=== PATIENT | female | born 1995 | race Caucasian/White ===

== ENCOUNTER 2016-06-17 15:31 | Emergency (ER) | payer OTHER ==
[~2016-06-17] VITALS: Wt 73.5 kg
[~2016-06-17 15:31] MED LIST: AZIT250T94 PO; BEN25 PO; EXCED PO; IBUP400T22 PO; LOPE2CAP PO; MECL12.574 PO; NASO17 NASAL; NITR-58 PO; ONDA4TAB14 PO; PRED50TA PO; PSEU30TA38 PO
--- NOTE | 2016-06-17 17:41 | ERD ---
ER Documentation Chief Complaint Date/Time DATE: 06/17/16 TIME: 17:40 Chief Complaint COUGH, BODYACHES, FEVER AT HOME, ONSET 3 DAYS HPI 20-year-old female comes in with cough, body aches and fever for the past 3 days. Patient states she has a dry cough. Patient states that her fever is maximum of 100.2. She denies chest pain, shortness of breath or trouble. No history of asthma, she is a non-smoker. ROS All systems reviewed and are negative except as per history of present illness. Medications Home Meds Active Scripts Ondansetron (Ondansetron Odt) 4 Mg Tab.rapdis, 4 MG PO Q6H Y for NAUSEA AND/OR VOMITING, #10 TAB Prov:ADRI SNYDER PA-C 05/03/16 Acetaminophen/Aspirin/Caffeine* (Excedrin*) 1 Tab Tab, 1 TAB PO BID, #20 TAB Prov:ADRI SNYDER PA-C 05/03/16 Meclizine Hcl* (Antivert*) 12.5 Mg Tab, 12.5 MG PO Q6H Y for DIZZINESS, #20 TAB Prov:ADRI SNYDER PA-C 05/03/16 Nitrofurantoin Monohyd Macrocr* (Macrobid*) 100 Mg Capsr, 100 MG PO BID for 5 Days, CAP Prov:RAINER GARCIA PA-C 12/14/15 Loperamide Hcl* (Imodium*) 2 Mg Capsule, 2 MG PO .AFTER EA LOOSE BM Y for DIARRHEA, #12 TAB Prov:RAINER GARCIA PA-C 12/14/15 Mometasone Furoate* (Nasonex*) 50 Mcg/[place] - 17 Gm [place].pump, 2 SPRAY NASAL DAILY, #1 BOTTLE TO EACH NOSTRIL Prov:BETY SOTO PA-C 06/02/15 Pseudoephedrine Hcl* (Pseudoephedrine Hcl*) 30 Mg Tablet, 30 MG PO Q6 Y for CONGESTION, #30 TAB Prov:BETY SOTO PA-C 06/02/15 Prednisone* (Prednisone*) 50 Mg Tablet, 50 MG PO DAILY, #3 TAB Prov:RAINER GARCIA PA-C 02/27/15 Diphenhydramine Hcl* (Benadryl*) 25 Mg Cap, 25 MG PO Q6, #30 CAP Prov:RAINER GARCIA PA-C 02/27/15 Ibuprofen* (Ibuprofen*) 400 Mg Tablet, 400 MG PO Q6H Y for PAIN, #30 TAB Prov:CIARAJASMEETOLGA MENDENHALL NP 02/26/15 Azithromycin* (Zithromax*) 250 Mg Tablet, 250 MG PO .ZPACK DIRECTED, #6 TAB TAKE 500 MG (2 TABS) THE FIRST DAY THEN 250 MG (1 TAB) DAYS 2-5 Prov:CIARAJASMEETOLGA MENDENHALL NP 02/26/15 Allergies Allergies: Coded Allergies: penicillin (Verified Allergy, Unknown, rash, 05/03/16) PMhx/Soc History of Surgery: No Anesthesia Reaction: No Hx Neurological Disorder: No Hx Respiratory Disorders: Yes (URI) Hx Cardiac Disorders: No Hx Psychiatric Problems: No Hx Miscellaneous Medical Probl: Yes (Rash) Hx Alcohol Use: No Hx Substance Use: No Hx Tobacco Use: No Physical Exam Vitals Vital Signs Date Time Temp Pulse Resp B/P Pulse Ox O2 Delivery O2 Flow Rate FiO2 06/17/16 16:03 99.5 101 18 135/78 98 Physical Exam General: Well-developed, well-nourished. The patient appears in no acute distress. HEENT: Head is normocephalic, atraumatic. No scleral icterus. Pupils are equal , round, and reactive. Oral mucous membranes are moist. No pharyngeal erythema. Neck: Supple. Nontender. Lungs: Clear to auscultation. Normal air movement. Heart: Regular rate and rhythm. S1 and S2 are normal. No murmurs, gallops, or rubs. Abdomen: Soft, nontender, nondistended. Bowel sounds are normoactive. Extremities: No clubbing or cyanosis. Normal pulses. Moving extremities x 4. No weakness. Neurologic: Alert and oriented 3. No focal deficits. Skin: Normal turgor. No rash or lesions. Procedures/MDM The patient is a 20-year-old female who comes in with an acute upper respiratory infection, presumed viral. The patient has a differential diagnosis of a viral upper respiratory infection, bacterial upper respiratory infection, bronchitis, pneumonia, pharyngitis, laryngitis, epiglottitis, croup, pneumonia. Patient has a normal pulmonary examination, clear breath sounds, normal pulse oximetry, with no corrective measures needed at this time. Fluids, rest, antipyretics were encouraged. Departure Diagnosis: Primary Impression: URI, acute Condition: Good Patient Instructions: Uri, Viral, No Abx (Adult) Additional Instructions: Call your primary care doctor TOMORROW for an appointment during the next 1-2 days.See the doctor sooner or return here if your condition worsens before your appointment time. TAL PASTRANA PA-C Jun 17, 2016 17:41
== END 2016-06-17 16:50 | disposition home or self-care (01) ==
LOC: E/R 15:31
DX: J06.9 Acute upper respiratory infection, unspecified (principal)
CPT/HCPCS: 99282

== ENCOUNTER 2016-08-21 00:36 | Emergency (ER) | payer OTHER ==
[~2016-08-21] VITALS: Wt 72.7 kg
[2016-08-21] MEDS ORDERED: ACETAMINOPHEN 500 MG TAB PO STA (01:46)
[2016-08-21] MEDS ORDERED: IBUPROFEN 800 MG TAB PO ONE (02:00)
--- NOTE | 2016-08-21 02:17 | ERD ---
ER Documentation Chief Complaint Date/Time DATE: 08/21/16 TIME: 02:15 Chief Complaint alamo, bodyaches, fever. advil at home at 1600. cooling measures init HPI 21-year-old female presents here in emergency department for complaint of headache bodyaches fever runny nose nasal congestion and diarrhea started yesterday. Patient denies any shortness of breath or wheezing. Patient denies any sick contact. Patient ibuprofen on help with symptoms. Patient denies any sick contacts. Patient does not have any abdominal pain, flank pain, hematuria or dysuria. Patient denies blood in the stool or black stool. She denies any vomiting. ROS All systems reviewed and are negative except as per history of present illness. Medications Home Meds Active Scripts Cetirizine Hcl* (Zyrtec*) 10 Mg Capsule, 10 MG PO DAILY, #30 TAB.CHEW Prov:OLGA MARTINEZ NP 08/21/16 Acetaminophen* (Tylophen*) 500 Mg Capsule, 1 CAP PO Q6H Y for PAIN AND OR ELEVATED TEMP, #20 CAP Prov:OLGA MARTINEZ NP 08/21/16 Ondansetron (Ondansetron Odt) 4 Mg Tab.rapdis, 4 MG PO Q8 Y for NAUSEA AND/OR VOMITING, #30 TAB Prov:OLGA MARTINEZ RN PICU 08/21/16 Ibuprofen* (Motrin*) 600 Mg Tab, 600 MG PO Q6H Y for PAIN AND OR ELEVATED TEMP, #30 TAB Prov:OLGA MARTINEZ NP 08/21/16 Dicyclomine Hcl* (Bentyl*) 10 Mg Capsule, 10 MG PO QID, #20 CAP Prov:OLGA MARTINEZ RN PICU 08/21/16 Ondansetron (Ondansetron Odt) 4 Mg Tab.rapdis, 4 MG PO Q6H Y for NAUSEA AND/OR VOMITING, #10 TAB Prov:ADRI SNYDER PA-C 05/03/16 Acetaminophen/Aspirin/Caffeine* (Excedrin*) 1 Tab Tab, 1 TAB PO BID, #20 TAB Prov:ADRI SNYDER PA-C 05/03/16 Meclizine Hcl* (Antivert*) 12.5 Mg Tab, 12.5 MG PO Q6H Y for DIZZINESS, #20 TAB Prov:ADRI SNYDER PA-C 05/03/16 Nitrofurantoin Monohyd Macrocr* (Macrobid*) 100 Mg Capsr, 100 MG PO BID for 5 Days, CAP Prov:RAINER GARCIA PA-C 12/14/15 Loperamide Hcl* (Imodium*) 2 Mg Capsule, 2 MG PO .AFTER EA LOOSE BM Y for DIARRHEA, #12 TAB Prov:RAINER GARCIA PA-C 12/14/15 Mometasone Furoate* (Nasonex*) 50 Mcg/[place] - 17 Gm [place].pump, 2 SPRAY NASAL DAILY, #1 BOTTLE TO EACH NOSTRIL Prov:BETY SOTO PA-C 06/02/15 Pseudoephedrine Hcl* (Pseudoephedrine Hcl*) 30 Mg Tablet, 30 MG PO Q6 Y for CONGESTION, #30 TAB Prov:BETY SOTO PA-C 06/02/15 Prednisone* (Prednisone*) 50 Mg Tablet, 50 MG PO DAILY, #3 TAB Prov:RAINER GARCIA PA-C 02/27/15 Diphenhydramine Hcl* (Benadryl*) 25 Mg Cap, 25 MG PO Q6, #30 CAP Prov:RAINER GARCIA PA-C 02/27/15 Ibuprofen* (Ibuprofen*) 400 Mg Tablet, 400 MG PO Q6H Y for PAIN, #30 TAB Prov:OLGA MARTINEZ RN PICU 02/26/15 Azithromycin* (Zithromax*) 250 Mg Tablet, 250 MG PO .ZPACK DIRECTED, #6 TAB TAKE 500 MG (2 TABS) THE FIRST DAY THEN 250 MG (1 TAB) DAYS 2-5 Prov:OLGA MARTINEZ RN PICU 02/26/15 Allergies Allergies: Coded Allergies: penicillin (Verified Allergy, Unknown, rash, 05/03/16) PMhx/Soc Medical and Surgical Hx: pt denies Medical Hx, pt denies Surgical Hx History of Surgery: No Anesthesia Reaction: No Hx Neurological Disorder: No Hx Respiratory Disorders: No Hx Cardiac Disorders: No Hx Psychiatric Problems: No Hx Miscellaneous Medical Probl: No Hx Alcohol Use: Yes (social) Hx Substance Use: No Hx Tobacco Use: No Smoking Status: Never smoker FmHx Family History: No coronary disease, No diabetes, No other Physical Exam Vitals Vital Signs Date Time Temp Pulse Resp B/P Pulse Ox O2 Delivery O2 Flow Rate FiO2 08/21/16 04:20 100.2 98 20 120/78 99 08/21/16 00:37 103.6 155 20 130/88 99 Physical Exam GENERAL: The patient is well developed and appropriate for usual state of health, in no apparent distress. HEENT: Atraumatic. Ears: Normal tympanic membrane, no erythema or bulging. No ear canal swelling. No ear discharge. Nose: Erythematous nasal turbinates with clear nasal discharge. Throat: oropharynx erythematous with postnasal drip. No tonsillar swelling or tonsillar exudates. No lymphadenopathy. CHEST: Clear to auscultation bilaterally. There are no rales, wheezes or rhonchi. HEART: Regular rate and rhythm. No murmurs, clicks, rubs or gallops. No S3 or S4. ABDOMEN: Soft, nontender and nondistended. Hyperactive bowel sounds. No rebound or guarding. No gross peritonitis. No gross organomegaly or masses. No Wong sign or McBurney point tenderness. BACK: No midline or flank tenderness. EXTREMITIES: Equal pulses bilaterally. There is no peripheral clubbing, cyanosis or edema. No focal swelling or erythema. Full range of motion. Grossly neurovascularly intact. NEURO: Alert and oriented. Cranial nerves 2-12 intact. Motor strength in all 4 extremities with 5/5 strength. Sensation grossly intact. Normal speech and gait. SKIN: There is no apparent rash or petechia. The skin is warm and dry. HEMATOLOGIC AND LYMPHATIC: There is no evidence of excessive bruising or lymphedema. No gross cervical, axillary, or inguinal lymphadenopathy. Results 24 hrs Laboratory Tests Test 08/21/16 02:00 Urine Bacteria OCCASIONAL Urine Bilirubin NEGATIVE Urine Clarity CLEAR Urine Color LT. YELLOW Urine Glucose NEGATIVE% Urine Hemoglobin 2+ Urine Ketones NEGATIVE Urine Leukocyte Esterase NEGATIVE Urine Microscopic RBC >50/HPF Urine Microscopic WBC 0-2/HPF Urine Nitrite NEGATIVE Urine Specific [place] 1.015 Urine Squamous Epithelial Cells FEW Urine Total Protein NEGATIVE Urine Urobilinogen 0.2 E.U./dL Urine pH 7.0 Current Medications Medications (Trade) Dose Ordered Sig/[place] Route PRN Reason Start Time Stop Time Status Last Admin Dose Admin Ibuprofen (Motrin) 800 mg ONCE ONCE PO 08/21/16 02:00 08/21/16 02:01 DC 08/21/16 01:55 Acetaminophen (Tylenol Tab) 500 mg ONCE STAT PO 08/21/16 01:46 08/21/16 01:47 DC 08/21/16 01:55 Patient was given medicines for fever control here in the emergency department. After treatment, patient temperature improved and lower. Patient appears well and is hemodynamically stable. Microbiology INFLUENZA A & B BY EIA Final INFLU A&B BY EIA INFLUENZA A NEGATIVE (Ref Range Neg) INFLUENZA B NEGATIVE (Ref Range Neg) PROCEDURE: XR Chest. CLINICAL INDICATION: Fever. TECHNIQUE: Single frontal view of the chest was obtained COMPARISON: None FINDINGS: The heart and mediastinum are within normal limits. The lungs are clear. There is no pleural effusion or pneumothorax. IMPRESSION: No acute disease. RPTAT: [facility] Physician Sarina Date Time Electronically viewed and signed by Physician Sarina on 08/21/2016 02:36 RS/ CC: OLGA MARTINZE RN PICU Procedures/MDM Medical Decision Making: Patient symptoms are most likely consistent with viral syndrome. No symptoms of dehydration. No symptoms of abdominal emergencies.. There is low suspicion for Pneumonia at this time since patients lungs sounds are clear, patient O2 saturation is normal and patient doesnt show any respiratory distress. Patients chest xray doesnt show infiltrates or any other cardiopulmonary emergencies at this time. There is low suspicion for other cardiopulmonary emergencies at this time such as CHF, Pulmonary Embolism, Pneumothorax, Aortic Aneurysm or any other cardiopulmonary emergencies at this time. There is low suspicion for sepsis. Patient appears well and is hemodynamically stable. Fever is controlled with medicines. Disposition: Home. Condition: Stable Prescriptions: Bentyl Zofran, ibuprofen, Tylenol, zyrtec Instructions: Patient is advised to take medications as prescribed. Patient is advised to rest. Patient advised to increase fluid intake, do humidifier at home and if possible, do salt water gargles. Patient is advised that if symptoms are worse, shortness of breath, uncontrolled fever, stridor, vomiting, worst signs and symptoms to return to emergency department immediately. Otherwise, patient is advised to follow up with primary doctor in 5-7 days. Departure Diagnosis: Primary Impression: Viral syndrome Condition: Stable Patient Instructions: Viral Syndrome (Adult) Additional Instructions: Patient is advised to take medications as prescribed. Patient is advised to rest. Patient advised to increase fluid intake, do humidifier at home and if possible, do salt water gargles. Patient is advised that if symptoms are worse, shortness of breath, uncontrolled fever, stridor, vomiting, worst signs and symptoms to return to emergency department immediately. Otherwise, patient is advised to follow up with primary doctor in 5-7 days. OLGA MARTINEZ NP Aug 21, 2016 02:16
[2016-08-21 02:29] LABS: ADD UMIC YES; URINE BILIRUBIN (Dip) NEGATIVE (NEGATIVE); URINE BLOOD (Dip) 2+ (NEGATIVE); URINE COLOR LT. YELLOW (YELLOW); URINE GLUCOSE (Dip) NEGATIVE (NEGATIVE); URINE KETONES (Dip) NEGATIVE (NEGATIVE); URINE LEUKOCYTE ESTERASE (Dip) NEGATIVE (NEGATIVE); URINE NITRITE (Dip) NEGATIVE (NEGATIVE); URINE TOTAL PROTEIN (Dip) NEGATIVE (NEGATIVE); URINE UROBILINOGEN (Dip) 0.2 E.U./dL (0.1-1.0)
--- NOTE | 2016-08-21 02:36 | RADRPT ---
PROCEDURE: XR Chest. CLINICAL INDICATION: Fever. TECHNIQUE: Single frontal view of the chest was obtained COMPARISON: None FINDINGS: The heart and mediastinum are within normal limits. The lungs are clear. There is no pleural effusion or pneumothorax. IMPRESSION: No acute disease. RPTAT: [facility] Physician Sarina Date Time Electronically viewed and signed by Physician Sarina on 08/21/2016 02:36 RS/
[2016-08-21] MEDS ORDERED: ACET500C5 PO (03:02)
[2016-08-21] MEDS ORDERED: CETI10CA PO (03:02)
[2016-08-21] MEDS ORDERED: ONDA4TAB14 PO (03:02)
[2016-08-21] MEDS ORDERED: IBUP-1542 PO (03:02)
[2016-08-21] MEDS ORDERED: DICY10CA60 PO (03:02)
[2016-08-21 03:16] LABS: BACTERIA,URINE OCCASIONAL; SQUAMOUS EPITHELIAL CELL,UR FEW; URINE RBCS >50 /HPF (0)
[2016-08-21 04:20] VITALS: BP 120/78; PULSE 98; RESP 20; TEMP 100.2
== END 2016-08-21 04:21 | disposition home or self-care (01) ==
LOC: FTE 00:36
DX: B34.9 Viral infection, unspecified (principal)
CPT/HCPCS: 71010; 81001; 87400; Z7502; Z7610; 81003